=== PATIENT | female | born 1955 | race Caucasian/White ===

== ENCOUNTER → 2018-03-13 | Outpatient (CLI) | payer OTHER | END | disposition home or self-care (01) | LOC: CFH 08:02 | PROVIDERS: ATTEND Family Medicine | DX: Z12.31 Encounter for screening mammogram for malignant neoplasm of breast (principal); Z85.3 Personal history of malignant neoplasm of breast | CPT/HCPCS: 77067 ==

== ENCOUNTER → 2018-04-09 | Outpatient (CLI) | payer OTHER ==
[~2018-04-09] MED LIST: OMNIPAQUE 350 MG/ML, 150 ML BOTTLE ONE
== END | disposition home or self-care (01) ==
LOC: CFH 11:46
PROVIDERS: ATTEND Family Medicine
DX: N28.1 Cyst of kidney, acquired (principal); K42.9 Umbilical hernia without obstruction or gangrene; R31.9 Hematuria, unspecified; Z85.3 Personal history of malignant neoplasm of breast; Z90.11 Acquired absence of right breast and nipple
CPT/HCPCS: 74178; Q9967

== ENCOUNTER 2019-05-01 23:22 | Day surgery (SDC) | payer MEDICARE, OTHER ==
[~2019-05-01] VITALS: Ht 152.4 cm; Wt 72.4 kg
[2019-05-01] MEDS ORDERED: ONDANSETRON ODT 4 MG ONE (23:48)
[2019-05-01] MEDS ORDERED: OXYcodone/APAP 5/325MG TABLET ONE (23:48)
--- NOTE | 2019-05-01 23:54 | NUR ---
PT MEDICATED ORDERED URINE AND BLOOD TO LAB AWAITING TEST RESULTS.
[2019-05-02] MEDS ORDERED: OXYcodone/APAP 5/325MG TABLET PO ONE
[2019-05-02] MEDS ORDERED: ONDANSETRON ODT 4 MG PO ONE
[2019-05-02 00:03] LABS: BASOPHILS # (AUTO) 0.02 x10^3/uL (0-0.1); BASOPHILS % (AUTO) 0 % (0-1); EOSINOPHILS # (AUTO) 0.06 x10^3/uL (0-0.4); EOSINOPHILS % (AUTO) 1 % (1-7); LYMPHOCYTES # (AUTO) 1.88 x10^3/uL (1-3.4); LYMPHOCYTES % (AUTO) 16 % (22-44); MD NO; MEAN CORPUSCULAR HEMOGLOBIN 30.3 pg (27.0-34.8); MEAN CORPUSCULAR HGB CONC 33.8 g/dL (32.4-35.8); MEAN CORPUSCULAR VOLUME 89.7 fL (80-100); MONOCYTES # (AUTO) 0.58 x10^3/uL (0.2-0.8); MONOCYTES % (AUTO) 5 % (2-9); NEUTROPHILS # (AUTO) 9.26 x10^3/uL (1.8-6.8); NEUTROPHILS % (AUTO) 78 % (42-75); PLATELET COUNT 203 x10^3/uL (130-400); RED CELL DISTRIBUTION WIDTH 13.6 % (9.6-15.2)
[2019-05-02 00:04] LABS: MICROSCOPIC AUTO
[2019-05-02 00:11] LABS: ALANINE AMINOTRANSFERASE 42 U/L (12-78); ALBUMIN 3.7 g/dL (3.4-5.0); ANION GAP 5 mmol/L (5-15); CALCIUM 9.5 mg/dL (8.5-10.1); CHLORIDE 105 mmol/L (98-107); CULTURE INDICATED? YES
[2019-05-02 00:13] LABS: ALKALINE PHOSPHATASE 85 U/L (45-117); BILIRUBIN,TOTAL 0.8 mg/dL (0.2-1.0); TOTAL PROTEIN 7.4 g/dL (6.4-8.2)
--- NOTE | 2019-05-02 01:00 | NUR ---
PT UP FOR RECHECK
--- NOTE | 2019-05-02 02:55 | NUR ---
PT WITH IV STARTED AND MEDICATED ORDERED AWAITNG CT SCAN.
--- NOTE | 2019-05-02 03:11 | NUR ---
PT TO CT SCAN
[2019-05-02] MEDS ORDERED: METRONIDAZOLE PMX 500MG/100ML 100 ML ONE (04:29)
[2019-05-02] MEDS ORDERED: CEFTRIAXONE PMX 1GM/50ML 50 ML ONE (04:29)
[2019-05-02] MEDS ORDERED: HYDROmorphone 1 MG/ML, 1ML INJ IVPush PRN (04:30)
[2019-05-02] MEDS ORDERED: CEFOTETAN PMX 2GM/50ML 50 ML IV ONE (04:30)
[2019-05-02] MEDS ORDERED: MORPHINE SULFATE 4 MG/ML, 1ML IVPush PRN ×2 (04:30→05:00)
[2019-05-02] MEDS ORDERED: ONDANSETRON 2MG/ML, 2ML IVPush PRN (04:30)
[2019-05-02] MEDS ORDERED: METRONIDAZOLE PMX 500MG/100ML 100 ML IV ONE (04:30)
[2019-05-02] MEDS ORDERED: SODIUM CHLORIDE 0.9% 1,000 ML IV ONE (04:30)
[2019-05-02] MEDS ORDERED: CEFTRIAXONE PMX 1GM/50ML 50 ML IV ONE (04:30)
[2019-05-02] MEDS ORDERED: CEFOTETAN PMX 1GM/50ML 50 ML ONE (04:34)
--- NOTE | 2019-05-02 04:48 | NUR ---
REPORT CALLED TO FLOOR PT READY FOR TRANSPORT
[2019-05-02] MEDS ORDERED: OMNIPAQUE 350 MG/ML, 100ML BOTTLE ONE (06:32)
[2019-05-02 07:12] VITALS: BP 99/57
[2019-05-02] MEDS ORDERED: EPINEPHRINE 1 MG/ML, 1ML ONE (08:28)
[2019-05-02] MEDS ORDERED: BUPIVACAINE/PF 0.25% ONE (08:28)
[2019-05-02] MEDS ORDERED: FENTANYL PF 100 MCG/2ML ONE (08:32)
[2019-05-02] MEDS ORDERED: MIDAZOLAM 1 MG/ML, 2ML ONE (08:32)
[2019-05-02] MEDS ORDERED: DEXAMETHASONE 4 MG/ML, 1ML ONE (08:33)
[2019-05-02] MEDS ORDERED: LIDOCAINE GEL 2%, 5ML ONE (08:33)
[2019-05-02] MEDS ORDERED: PROPOFOL 10 MG/ML, 20ML ONE (08:33)
[2019-05-02] MEDS ORDERED: CEFAZOLIN 1,000 MG ONE (08:33)
[2019-05-02] MEDS ORDERED: SUCCINYLCHOLINE 20 MG/ML, 10ML ONE (08:33)
[2019-05-02] MEDS ORDERED: NEOSTIGMINE 1 MG/ML, 10ML ONE (08:33)
[2019-05-02] MEDS ORDERED: ONDANSETRON 2MG/ML, 2ML ONE ×2 (08:33→08:51)
[2019-05-02] MEDS ORDERED: GLYCOPYRROLATE 0.2MG/1ML, 5ML ONE (08:33)
[2019-05-02] MEDS ORDERED: ROCURONIUM 10MG/ML,5ML ONE (08:33)
[2019-05-02] MEDS ORDERED: SUGAMMADEX 200 MG/2 ML IVPush ONE (08:34)
[2019-05-02] MEDS ORDERED: KETOROLAC 30 MG/1 ML ONE (08:34)
[2019-05-02] MEDS ORDERED: CEFOTETAN PMX 2GM/50ML 50 ML ONE (08:42)
[2019-05-02] MEDS ORDERED: BUPIVACAINE/PF-EPI 0.25% 1:200K INFIL ONE (08:47)
[2019-05-02] MEDS ORDERED: MEPERIDINE/PF 25MG/ML,1ML IVPush PRN (09:00)
[2019-05-02] MEDS ORDERED: HYDROcodone/APAP 7.5-325MG/15ML UDC PO PRN (09:00)
[2019-05-02] MEDS ORDERED: ACETAMINOPHEN 325 MG TABLET PO PRN (09:00)
[2019-05-02] MEDS ORDERED: ONDANSETRON 2MG/ML, 2ML IV PRN (09:00)
[2019-05-02] MEDS ORDERED: hydrALAzine 20 MG/ML, 1ML IV PRN (09:00)
[2019-05-02] MEDS ORDERED: HYDROmorphone 2 MG/ML, 1ML IVPush PRN (09:00)
[2019-05-02] MEDS ORDERED: PROMETHAZINE 25 MG/ML, 1ML IV PRN (09:00)
[2019-05-02] MEDS ORDERED: EPHEDRINE 50 MG/ML, 1ML IVPush PRN (09:00)
[2019-05-02] MEDS ORDERED: LABETALOL 5MG/ML, 20ML IV PRN (09:00)
[2019-05-02] MEDS ORDERED: FENTANYL PF 100 MCG/2ML IV PRN (09:00)
[2019-05-02] MEDS ORDERED: HYDR-3240 PO (11:20)
== END 2019-05-02 12:10 | disposition home or self-care (01) ==
LOC: ED 23:49 → 4NE 05-02 04:30 → ED 05-02 04:30 → UNDOADMIN 05-02 04:30 → UNDODISIN 05-02 12:10 → ED 05-02 12:10
PROVIDERS: ATTEND Student in an Organized Health Care Education/Training Program
DX: K35.30 Acute appendicitis with localized peritonitis, without perforation or gangrene (principal); E78.5 Hyperlipidemia, unspecified; K21.9 Gastro-esophageal reflux disease without esophagitis; K76.0 Fatty (change of) liver, not elsewhere classified; Z72.89 Other problems related to lifestyle; Z79.899 Other long term (current) drug therapy; Z85.3 Personal history of malignant neoplasm of breast; Z88.0 Allergy status to penicillin; Z98.890 Other specified postprocedural states
CPT/HCPCS: 36415; 44970; 74177; 76700; 80053; 81001; 83690; 85025; 87086; 88304; J0171; J0330; J1100; J1885; J2250; J2405; J2704; J3010; J3490; J7030; Q0162; Q9967; G0378; J0690; J2710

== ENCOUNTER 2020-10-25 04:19 | Emergency (ER) | payer MEDICARE, OTHER ==
[~2020-10-25] VITALS: Ht 165.1 cm; Wt 74.4 kg
[~2020-10-25 04:19] MED LIST changes: +HYDR-2214 PO; -OMNIPAQUE 350 MG/ML, 150 ML BOTTLE ONE
--- NOTE | 2020-10-25 04:48 | NUR ---
PT CAME INTO ED THIS AM DUE TO PAIN AFTER A FALL ON THE GOLF COURSE YESTERDAY. STATES "I SLIPPED ON A LITTLE [place]." PT DENIES LOC OR HEAD TRAUMA, PT HAS LEFT KNEE ABRASION AND RIGHT WRIST SWELLING. PT REPORTS WAKING UP A 3:30 AM WITH EXTREME PAIN AND COMING IN. PT PLACED ON SPO2/BP MONITORING IN PLACE, BED IN LOWEST, RAILS ENGAGED, CALL LIGHT ON LAP, AT BS. [facility].
[2020-10-25] MEDS ORDERED: HYDROcodone/APAP 5/325 TABLET ONE (05:17)
--- NOTE | 2020-10-25 05:24 | NUR ---
PT MEDICATED PER AUG 11 RIGHTS VERIFIED, NADN, NO NEEDS AT THIS TIME
[2020-10-25] MEDS ORDERED: HYDROcodone/APAP 5/325 TABLET PO ONE (05:30)
--- NOTE | 2020-10-25 06:25 | NUR ---
ASSUMED CARE OF PT. AWAITING XR READ. PT RESTING ON GURNEY W/ CALL LIGHT IN REACH AND SIDE RAILS UPX2. RESP EVEN AND UNLABORED, NATALIE.
--- NOTE | 2020-10-25 06:45 | NUR ---
report from SONJA Del Rosario
--- NOTE | 2020-10-25 07:00 | NUR ---
PT SITTING ON NATALIE KAT/ROXANNA. AT BS. CALL LIGHT WITHIN REACH. AWAITING XRAY RESULTS. NO NEEDS AT THIS TIME.
[2020-10-25 07:24] VITALS: BP 106/53
--- NOTE | 2020-10-25 08:00 | NUR ---
Patient given discharge instructions and RX, they have confirmed that they understand the instructions. Patient ambulatory with steady gait.
== END 2020-10-25 08:01 | disposition home or self-care (01) ==
LOC: ED 05:52
DX: S60.211A Contusion of right wrist, initial encounter (principal); S80.02XA Contusion of left knee, initial encounter; E78.00 Pure hypercholesterolemia, unspecified; Z90.89 Acquired absence of other organs; Z85.3 Personal history of malignant neoplasm of breast; W18.30XA Fall on same level, unspecified, initial encounter; Y93.89 Activity, other specified; Y92.39 Other specified sports and athletic area as the place of occurrence of the external cause; Y99.8 Other external cause status
CPT/HCPCS: 29125; 99284